=== PATIENT | female | born 1970 | race Caucasian/White ===

== ENCOUNTER → 2017-06-25 | Outpatient (CLI) | payer BC | LOC: BRMIMAGING 08:01 | PROVIDERS: ATTEND Physician Assistant Medical | DX: Z12.31 Encounter for screening mammogram for malignant neoplasm of breast (principal); Z80.3 Family history of malignant neoplasm of breast | CPT/HCPCS: G0202 ==

== ENCOUNTER → 2017-06-30 | Outpatient (CLI) | payer BC | LOC: CIMAGING 13:31 | PROVIDERS: ATTEND Physician Assistant Medical | DX: Z03.89 Encounter for observation for other suspected diseases and conditions ruled out (principal) | CPT/HCPCS: 76641-PO ==